=== PATIENT | female | born 1965 | race Caucasian/White ===

== ENCOUNTER 2025-04-03 20:26 | Outpatient (REF) | payer OTHER, SELFPAY ==
--- OUTSIDE RECORDS SUMMARY | 2025-04-03 15:00 | XMS_ITS | Encounter Summary ---
Author Organization [facility] Address [address] [place] [address] Care Team Providers Care Support Director Name Role Phone Yann Lima DO Primary Care Provider [phone] Reason for Visit * Reason Comments Well Women Visit Encounter Details Date Type Department Care Team (Late st Contact Info) Description 04/03/2025 3:00 PM EDT Office Visit [facility] [address] [place] [id number] Angela Chan PA [address] [place] [address] Well woman exam with routine gynecological exam; Breast cancer screening by mammogram; Postmenopausal state Social History Tobacco Use Types Packs/Day Years Used Date Smoking Tobacco: Never Assessed Comments No Sex and Gender Information Value Date Recorded Sex Assigned at Not on file Legal Sex Female 11:23 AM EST Gender Identity Not on file Sexual Orientation Not on file documented as of this encounter Last Filed Vital Signs Vital Sign Reading Time Taken Comments Blood Pressure 106/68 04/03/2025 3:14 PM EDT Pulse - - Temperature - - Respiratory Rate - - Oxygen Saturation - - Inhaled Oxygen Concentration - - Weight 58.9 kg (129 lb 12.8 oz) 04/03/2025 3:14 PM EDT Height - - Body Mass Index - - documented in this encounter Progress Notes * MARGUERITE Simmons - 04/03/2025 3:00 PM EDT Reason for Appointment: Patient ID: Cleo Pereira is a 59 y.o. female who presents for Well Women Visit Patient presents today for Annual Exam. MEDICATIONS Current Outpatient Medications Medication Instructions Lexapro 10 mg, Daily Multiple Vitamin (multivitamin) capsule 1 capsule, Oral, Daily propranolol (INDERAL) 10 mg, As needed Synthroid 75 mcg, Every other day ALLERGIES No Known Allergies PROBLEMS Active Ambulatory Problems Diagnosis Date Noted No Active Ambulatory Problems Resolved Ambulatory Problems Diagnosis Date Noted No Resolved Ambulatory Problems Past Medical History: Diagnosis Date Endometriosis Fibroids Heart palpitations Hypothyroidism (acquired) (CMS/HCC) Lichen disease Ovarian cyst Ventricular tachycardia (CMS/HCC) HISTORY PAST MEDICAL HISTORY SOCIAL HISTORY Past Medical History: Diagnosis Date Endometriosis Fibroids breast Heart palpitations Hypothyroidism (acquired) (CMS/HCC) Lichen disease Ovarian cyst Ventricular tachycardia (CMS/HCC) Social History Tobacco Use Smoking status: Not on file Smokeless tobacco: Not on file Substance Use Topics Alcohol use: Not on file Drug use: Not on file FAMILY HISTORY Family History Problem Relation Name Age of Onset Ovarian cysts Mother Endometriosis Mother Endometriosis Mother's Sister Ovarian cysts Maternal Grandmother SURGICAL HISTORY History reviewed. No pertinent surgical history. REVIEW OF SYSTEMS Review of Systems: Review of Systems All other systems reviewed and are negative. OBJECTIVE Objective: Physical Exam Constitutional: Appearance: Normal appearance. She is well-developed. Genitourinary: Vulva normal. Right Adnexa: not tender and no mass present. Left Adnexa: not tender and no mass present. No cervical discharge. Breasts: Breasts are soft. Right: Normal. Left: Normal. HENT: Head: Normocephalic. Nose: Nose normal. Mouth/Throat: Mouth: Mucous membranes are moist. Cardiovascular: Rate and Rhythm: Normal rate and regular rhythm. Pulmonary: Effort: Pulmonary effort is normal. Breath sounds: Normal breath sounds. Abdominal: General: Bowel sounds are normal. There is no distension. Palpations: Abdomen is soft. Tenderness: There is no abdominal tenderness. There is no guarding or rebound. Musculoskeletal: General: No swelling. Normal range of motion. Cervical back: Normal range of motion. Right lower leg: No edema. Left lower leg: No edema. Neurological: General: No focal deficit present. Mental Status: She is alert and oriented to person, place, and time. Skin: General: Skin is warm and dry. Psychiatric: Mood and Affect: Mood normal. Behavior: Behavior normal. Vitals and nursing note reviewed. Exam conducted with a memory care director present. Vitals: There is no height or weight on file to calculate BMI. BP: 106/68 No LMP recorded. Patient is perimenopausal. ASSESSMENT & PLAN ICD-10-CM 1. Well woman exam with routine gynecological exam Z01.419 THIN PREP TIS PAP AND HR HPV DNA 2. Breast cancer screening by mammogram Z12.31 Bilateral screening mammogram Bilateral screening mammogram 3. Postmenopausal state Z78.0 DEXA bone density Annual Exam: Patient presents today for an annual exam. Patient states she is doing well and has no complaints. Pap was obtained without difficulty. Orders Placed This Encounter Procedures Bilateral screening mammogram DEXA bone density Follow Up: Patient is to return in one year for annual unless needed otherwise. Documented by Nadine Díaz LPN on behalf of: MARGUERITE Simmons documented in this encounter Plan of Treatment Scheduled Orders Name Type Priority Associated Diagnoses Orde r Schedule Bilateral screening mammogram Imaging Routine Breast cancer screening by mammogram Expected: 04/03/2025, Expires: 06/03/2026 DEXA bone density Imaging Routine Postmenopausal state Expected: 04/03/2025 (Approximate), Expires: 04/03/2026 THIN PREP TIS PAP AND HR HPV DNA Pathology and Cytology Routine Well woman exam with routine gynecological exam Ordered: 04/03/2025 documented as of this encounter Visit Diagnoses Diagnosis Well woman exam with routine gynecological exam Routine gynecological examination Breast cancer screening by mammogram Postmenopausal state Asymptomatic postmenopausal status (age-related) (natural) documented in this encounter Care Teams Support Director Relationship Specialty Start Date End Date Yann Lima DO PCP - General Internal Medicine 01/21/25 documented as of this encounter
--- OUTSIDE RECORDS SUMMARY | 2025-04-03 20:29 | XMS_ITS | Clinical Summary ---
Author Organization [facility] Address [address] [address] Care Team Providers Care Entry Analyst Name Role Phone Yann Lima Primary Care Provider [phone] Allergies No known active allergies Medications Synthroid 75 MCG tablet Take 75 mcg by mouth every other day 10/23/2024 Active Lexapro 10 MG tablet Take 10 mg by mouth Daily 02/04/2019 Active propranolol (Inderal) 10 MG tablet Take 10 mg by mouth if needed (heart palpitations ) 12/16/2024 Active Multiple Vitamin (multivitamin) capsule Take 1 capsule by mouth Daily Active Encounters Date Type Department Care Team Description 04/03/2025 3:00 PM EDT Office Visit [facility] [address] [place] [address] Angela Chan PA Well woman exam with routine gynecological exam; Breast cancer screening by mammogram; Postmenopausal state 04/03/2025 Bamboo flowsheet [facility] [address] [place] [address] Angela Chan PA 02/17/2025 1:30 PM EDT Procedure Visit [facility] [address] [place] [address] Fernando Ruano DO Encounter for IUD removal 02/11/2025 11:00 AM EDT Ancillary Procedure [facility] [address] [place] [address] Dyspareunia in female 01/21/2025 1:40 PM EDT Office Visit [facility] [address] [place] [address] Fernando Ruano DO Menopause; Encounter for removal of intrauterine contraceptive device (IUD); Dyspareunia in female 01/21/2025 Bamboo flowsheet [facility] [address] [place] [address] Fernando Ruano DO 01/20/2025 Travel from Last 3 Months Family History Medical History Relation Name Comments Ovarian cysts Maternal Grandmother Endometriosis Mother Ovarian cysts Mother Endometriosis Mother's Sister Relation Name Status Comments Maternal Grandmother Mother Mother's Sister Social History Tobacco Use Types Packs/Day Years Used Date Smoking Tobacco: Never Assessed Comments No Sex and Gender Information Value Date Recorded Sex Assigned at Not on file Legal Sex Female 11:23 AM EST Gender Identity Not on file Sexual Orientation Not on file Last Filed Vital Signs Vital Sign Reading Time Taken Comments Blood Pressure 106/68 04/03/2025 3:14 PM EDT Pulse - - Temperature - - Respiratory Rate - - Oxygen Saturation - - Inhaled Oxygen Concentration - - Weight 58.9 kg (129 lb 12.8 oz) 04/03/2025 3:14 PM EDT Height - - Body Mass Index - - Plan of Treatment Health Maintenance Due Date Last Done Comments CT Colonography 1966 Colonoscopy 1966 Colorectal Cancer Screening 1966 FIT-DNA 1966 FIT 1966 FOBT 1966 Sigmoidoscopy 1966 Pap Smear 1987 Cervical Cancer Screening 1996 HPV/Cotest 1996 Mammogram 08/23/2024 08/23/2023, 03/0 06/2021, 08/20/2019, Additional history exists Influenza Vaccine (Season Ended) 2025 Procedures Procedure Name Priority Date/Time Associated Diagnosis Comments IUD REMOVAL Routine 02/17/2025 2:11 PM EDT Encounter for IUD removal POCT URINALYSIS DIPSTICK Routine 02/17/2025 1:51 PM EDT Encounter for IUD removal US PELVIC COMPLETE W/ TV Routine 02/11/2025 11:28 AM EDT Dyspareunia in female from Last 3 Months Results * IUD Removal (02/17/2025 2:11 PM EDT) Narrative Barbie Velasquez LPN - 02/17/2025 2:11 PM EDT Barbie Velasquez LPN 02/17/2025 3:09 PM IUD Removal Date/Time: 02/17/2025 2:11 PM Performed by: Fernando Ruano DO Authorized by: Fernando Ruano DO Consent: Consent obtained: Written Consent given by: Patient Procedure risks and benefits discussed: yes Patient questions answered: yes Patient agrees, verbalizes understanding, and wants to proceed: yes Educational handouts given: no Instructions and paperwork completed: yes Procedure: Removed with no complications: yes Removal due to mechanical complications of IUD: no Removal due to infection and inflammatory reaction: no Fernando Ruano DO IN CLINIC/BEDSIDE ORDERABLES Fin al Result * POCT urinalysis dipstick manually resulted (02/17/2025 1:51 PM EDT) Color, UA Yellow Clarity, UA Clear Glucose, UA Negative Negative - 2000(110) ++++ mg/dL Bilirubin, UA Negative Negative - 4(70) +++ mg/dL Ketones, UA Negative Negative - 160(16) ++++ mg/dL Spec Grav, UA 1.020 1 - 1.03 Blood, UA Negative Negative - 50 Irvin/mcL pH, UA 7.0 5 - 9 Protein, UA Trace Negative - 2000(20) ++++ mg/dL Urobilinogen, UA 0.2 0.2 - 12 mg/dL Leukocytes, UA Trace Negative - 500+++ Mumtaz/mcL Nitrite, UA Negative Negative - Positive Urine 02/17/2025 1:51 PM EDT Fernando Ruano DO POINT OF CARE TEST ENTER/EDIT OR DERABLES Final Result * US Pelvis w/ TV (02/11/2025 11:28 AM EDT) Anatomical Region Laterality Modality Pelvis Ultrasound 02/11/2025 11:3 3 PM EDT Narrative 02/11/2025 11:33 PM EDT EXAM: US PELVIC COMPLETE W/ TV HISTORY: Dyspareunia, history of endometriosis. COMPARISON: None available. TECHNIQUE: Two-dimensional transabdominal grayscale ultrasound imaging of the pelvis was performed. Transvaginal was performed. FINDINGS: UTERUS 6.4 x 2.8 x 4.3 cm The uterus is retroflexed in position and demonstrates a mildly heterogeneous echotexture. ENDOMETRIUM 0.3 cm The endometrium demonstrates a normal, homogeneous echotexture. The IUD is in the appropriate position within the endometrium. The bilateral ovaries are not visualized due to overlying bowel gas. No fluid is present within the cul-de-sac. IMPRESSION: 1. Mildly heterogeneous uterine echotexture. 2. IUD appropriate in position within the endometrium. 3. Bilateral ovaries not visualized due to overlying bowel gas. Interpreted by: Electronically signed by MILTON ROLLE II, MD, PHD at 11-Feb-2025 11:31:17 PM [facility] Procedure Note Milton Rolle MD - 02/11/2025 EXAM: US PELVIC COMPLETE W/ TV HISTORY: Dyspareunia, history of endometriosis. COMPARISON: None available. TECHNIQUE: Two-dimensional transabdominal grayscale ultrasound imaging ofthe pelvis was performed. Transvaginal was performed. FINDINGS: UTERUS 6.4 x 2.8 x 4.3 cm The uterus is retroflexed in position and demonstrates a mildlyheterogeneous echotexture. ENDOMETRIUM 0.3 cm The endometrium demonstrates a normal, homogeneous echotexture. The IUDis in the appropriate position within the endometrium. The bilateral ovaries are not visualized due to overlying bowel gas. No fluid is present within the cul-de-sac. IMPRESSION: 1. Mildly heterogeneous uterine echotexture. 2. IUD appropriate in position within the endometrium. 3. Bilateral ovaries not visualized due to overlying bowel gas. Interpreted by: Electronically signed by MILTON ROLLE II, MD, PHD [id number] 11:31:17 PM [facility] us Fernando Bindu DO [facility] US PROCEDURES Final Result from Last 3 Months Insurance [employer] Care Teams Entry Analyst Relationship Specialty Start Date End Date Yann Lima DO PCP - General Internal Medicine 01/21/25
--- OUTSIDE RECORDS SUMMARY | 2025-04-03 20:29 | XMS_ITS | Encounter Summary ---
Author Organization [facility] Address [address] [place] [address] Care Team Providers Care Nail Mill Worker Name Role Phone Yann Lima DO Primary Care Provider [phone] Encounter Details Date Type Department Care Team (Late st Contact Info) Description 04/03/2025 Bamboo flowsheet [facility] [address] [place] [address] Angela Chan PA [address] [place], [facility] Social History Tobacco Use Types Packs/Day Years Used Date Smoking Tobacco: Never Assessed Comments No Sex and Gender Information Value Date Recorded Sex Assigned at Not on file Legal Sex Female 11:23 AM EST Gender Identity Not on file Sexual Orientation Not on file documented as of this encounter Plan of Treatment Not on file documented as of this encounter Visit Diagnoses Not on filedocumented in this encounter Care Teams Nail Mill Worker Relationship Specialty Start Date End Date Yann Lima DO PCP - General Internal Medicine 01/21/25 documented as of this encounter
--- OUTSIDE RECORDS SUMMARY | 2025-04-03 20:29 | XMS_ITS | Encounter Summary ---
Author [facility] Address [id number] [address] [place] [address] Care Team Providers Care Limehouse Worker Name Role Phone Yann Lima DO Primary Care Provider [phone] Reason for Visit * Reason Comments Med Refill Encounter Details Date Type Department Care Team (Late st Contact Info) Description 08/12/2018 Refill [facility] [address] [place] [address] Allyssa Keith, MANUFACTURED BUILDINGS SUPERVISOR-BREWERY CELLAR WORKER [address] [place] [address] Med Refill Social History Tobacco Use Types Packs/Day Years Used Date Smoking Tobacco: Never Alcohol Use Standard Drinks/Week Comments No 0 (1 standard drink = 0.6 oz pur e alcohol) Comments Unknown Sex and Gender Information Value Date Recorded Sex Assigned at Not on file Legal Sex Female 11:43 AM EDT Gender Identity Not on file Sexual Orientation Not on file documented as of this encounter Miscellaneous Notes * Telephone Encounter - Barbie Florence - 08/12/2018 2:45 PM EDT LMOM for the patient to call and schedule their next appointment with [facility]PC. documented in this encounter Plan of Treatment Not on file documented as of this encounter Visit Diagnoses Not on filedocumented in this encounter Care Teams Limehouse Worker Relationship Specialty Start Date End Date Yann Lima DO [address] [place] [address] PCP - General 04/07/17 documented as of this encounter
--- OUTSIDE RECORDS SUMMARY | 2025-04-03 20:29 | XMS_ITS | Encounter Summary ---
Author Organization [facility] Address [id number] [address] [place] [address] Care Team Providers Care Mercantile Reporter Name Role Phone Yann Lima DO Primary Care Provider [phone] Reason for Visit * Reason Comments Med Refill Encounter Details Date Type Department Care Team (Late st Contact Info) Description 09/15/2019 Refill [facility] [address] [phone] Conner Bunch, WALLCOVERING TEXTURER-RAILWAY ENGINEER [address] [place] [address] Med Refill Social History Tobacco Use Types Packs/Day Years Used Date Smoking Tobacco: Never Smokeless Tobacco: Never Alcohol Use Standard Drinks/Week Comments No 0 (1 standard drink = 0.6 oz pur e alcohol) Childcare Answer Date Recorded Childcare Unknown 04/17/2019 Employment Answer Date Recorded Employment Unknown 04/17/2019 Comments No Sex and Gender Information Value Date Recorded Sex Assigned at Not on file Legal Sex Female 11:43 AM EDT Gender Identity Not on file Sexual Orientation Not on file documented as of this encounter Plan of Treatment Not on file documented as of this encounter Visit Diagnoses Not on filedocumented in this encounter Care Teams Mercantile Reporter Relationship Specialty Start Date End Date Yann Lima DO [address] [place] [address] PCP - General 04/07/17 documented as of this encounter
== END 2025-04-03 20:27 | disposition home or self-care (01) ==
LOC: LAB 20:26
PROVIDERS: Visit Provider Physician Assistant
DX: Z01.419 Encounter for gynecological examination (general) (routine) without abnormal findings (principal)
CPT/HCPCS: 87624; 88175